=== PATIENT | male | born 1990 | race Caucasian/White ===

== ENCOUNTER 2016-11-03 12:30 | Emergency (ER) | payer SELFPAY ==
[~2016-11-03] VITALS: Ht 180.3 cm; Wt 91.9 kg
[2016-11-03 13:45] VITALS: BP 150/78
== END 2016-11-03 13:54 | disposition home or self-care (01) ==
LOC: RME 12:30 → EME 12:30 → RME 13:54
DX: L98.8 Other specified disorders of the skin and subcutaneous tissue (principal)
CPT/HCPCS: 99281; 99284